=== PATIENT | female | born 1995 | race Caucasian/White ===

== ENCOUNTER 2019-06-03 22:20 | Emergency (ER) | payer OTHER, BC ==
[~2019-06-03] VITALS: Ht 170.2 cm; Wt 88.0 kg
[2019-06-04] MEDS ORDERED: CITRATE OF MAG296 ML PO (00:15)
== END 2019-06-04 01:32 | disposition home or self-care (01) ==
LOC: ER 22:20
DX: K59.00 Constipation, unspecified (principal); L72.0 Epidermal cyst
CPT/HCPCS: 74150; 81025; 99284-25

== ENCOUNTER 2019-06-18 10:17 | Day surgery (SDC) | payer OTHER, BC ==
[~2019-06-18 10:17] MED LIST: CITRATE OF MAG296 ML PO
--- NOTE | 2019-06-18 12:51 | NUR ---
PATIENT DISCHARGED IN STABLE CONDITION, AMBULATORY. COPY OF DISCHARGE INSTRUCTIONS GIVEN WITH STATED UNDERSTANDING.
[2019-06-22 11:36] LABS: Performing Lab SYMBIODX; Test Name SPINDLE CELL
[2019-07-09 10:16] LABS: Result SEE PATHOTH RESULTS
== END 2019-06-19 00:21 | disposition home or self-care (01) ==
LOC: CT 10:17
PROVIDERS: Internal Medicine Gastroenterology
DX: R19.03 Right lower quadrant abdominal swelling, mass and lump (principal); K59.09 Other constipation
CPT/HCPCS: 49180; 77012; 88307

== ENCOUNTER 2019-08-04 08:50 | Day surgery (SDC) | payer OTHER, BC ==
[~2019-08-04] VITALS: Ht 170.2 cm; Wt 91.2 kg
== END 2019-08-04 11:15 | disposition home or self-care (01) ==
LOC: ORSCSDS 08:50
PROVIDERS: Internal Medicine Gastroenterology
PROC: 0DJD8ZZ Inspection of Lower Intestinal Tract, Via Natural or Artificial Opening Endoscopic (ICD-10-PCS; principal; 2019-08-04 10:30)
DX: K62.5 Hemorrhage of anus and rectum (principal); K64.8 Other hemorrhoids; D48.1 Neoplasm of uncertain behavior of connective and other soft tissue
CPT/HCPCS: J2704; J7120

== ENCOUNTER → 2019-09-26 | Outpatient (CLI) | payer OTHER, BC ==
[2019-09-26 16:22] LABS: BASOPHILS ABSOLUTE AUTO 0.03 K/mm3 (0.00-0.23); BASOPHILS PERCENT AUTO 0 % (0-2); EOSINOPHILS ABSOLUTE AUTO 0.02 K/mm3 (0.00-0.68); EOSINOPHILS PERCENT AUTO 0 % (0-6); Hematocrit 43.4 % (33.0-51.0); Hemoglobin 14.5 g/dL (11.5-16.0); IMMATURE GRAN ABSOLUTE AUTO 0.06 K/mm3 (0.00-0.10); IMMATURE GRAN PERCENT AUTO 1 % (0-1); LYMPHOCYTES ABSOLUTE AUTO 1.08 K/mm3 (0.84-5.20); LYMPHOCYTES PERCENT AUTO 9 % (21-46); MONOCYTES ABSOLUTE AUTO 0.75 K/mm3 (0.16-1.47); MONOCYTES PERCENT AUTO 6 % (4-13); Mean Corpuscular HGB 29.6 pg (26.0-34.0); Mean Corpuscular HGB Conc 33.4 g/dL (31.5-36.5); Mean Corpuscular Volume 89 fL (80-100); Mean Platelet Volume 9.6 fL (9.1-12.4); NEUTROPHILS ABSOLUTE AUTO 10.82 K/mm3 (1.96-9.15); NEUTROPHILS PERCENT AUTO 85 % (41-73); Platelet Count 336 K/mm3 (150-400); RDW Coefficient Variation 11.5 % (11.7-14.2); RDW Standard Deviation 37.1 fL (35.1-46.3); White Blood Cell Count 12.76 K/mm3 (4.00-11.30)
[2019-09-26 16:50] LABS: Anion Gap 8 mmol/L (6-16); Blood Urea Nitrogen 13 mg/dL (8-24); Bun/Creatinine Ratio 16.6 (12.0-20.0); CO2, Blood 24 mmol/L (21-32); Calcium, Blood 9.2 mg/dL (8.5-10.1); Chloride, Blood 103 mmol/L (98-108); Creatinine, Blood 0.78 mg/dL (0.40-1.00); Glomerular Filtration Rate >60 (60-); Glucose, Blood 98 mg/dL (70-99); Potassium, Blood 3.5 mmol/L (3.5-5.5); Sodium, Blood 135 mmol/L (136-145)
== END ==
LOC: LAB 15:30 → LAB SHORT 15:30
PROVIDERS: Physician Assistant
DX: L08.9 Local infection of the skin and subcutaneous tissue, unspecified (principal); R10.9 Unspecified abdominal pain
CPT/HCPCS: 80048; 85025; 87070; 87077; 87086; 87186; 87205

== ENCOUNTER → 2019-10-14 | Outpatient (CLI) | payer OTHER, BC ==
[2019-10-14 17:05] LABS: BASOPHILS ABSOLUTE AUTO 0.04 K/mm3 (0.00-0.23); BASOPHILS PERCENT AUTO 0 % (0-2); EOSINOPHILS PERCENT AUTO 0 % (0-6); Hematocrit 41.8 % (33.0-51.0); Hemoglobin 14.1 g/dL (11.5-16.0); IMMATURE GRAN ABSOLUTE AUTO 0.05 K/mm3 (0.00-0.10); IMMATURE GRAN PERCENT AUTO 0 % (0-1); LYMPHOCYTES ABSOLUTE AUTO 1.95 K/mm3 (0.84-5.20); LYMPHOCYTES PERCENT AUTO 15 % (21-46); MONOCYTES ABSOLUTE AUTO 1.54 K/mm3 (0.16-1.47); MONOCYTES PERCENT AUTO 11 % (4-13); Mean Corpuscular HGB Conc 33.7 g/dL (31.5-36.5); Mean Corpuscular Volume 86 fL (80-100); Mean Platelet Volume 10.5 fL (9.1-12.4); NEUTROPHILS ABSOLUTE AUTO 9.91 K/mm3 (1.96-9.15); NEUTROPHILS PERCENT AUTO 73 % (41-73); Platelet Count 223 K/mm3 (150-400); RDW Coefficient Variation 11.9 % (11.7-14.2); RDW Standard Deviation 37.6 fL (35.1-46.3); Red Blood Cell Count 4.86 M/mm3 (3.80-5.20); White Blood Cell Count 13.49 K/mm3 (4.00-11.30)
[2019-10-14 17:21] LABS: Alanine Aminotransfer (ALT/SGP 23 U/L (12-78); Albumin, Blood 3.2 g/dL (3.4-5.0); Albumin/Globulin Ratio 0.7 (0.8-1.8); Alk Phos 105 U/L (50-136); Anion Gap 10 mmol/L (6-16); Aspartate Aminotrans (AST/SGOT 13 U/L (12-37); Bilirubin, Total 0.7 mg/dL (0.1-1.0); Blood Urea Nitrogen 9 mg/dL (8-24); Bun/Creatinine Ratio 10.5 (12.0-20.0); CO2, Blood 25 mmol/L (21-32); Calcium, Blood 9.3 mg/dL (8.5-10.1); Chloride, Blood 97 mmol/L (98-108); Creatinine, Blood 0.85 mg/dL (0.40-1.00); Globulin, Blood 4.5 g/dL (2.2-4.0); Glomerular Filtration Rate >60 (60-); Glucose, Blood 93 mg/dL (70-99); Potassium, Blood 3.1 mmol/L (3.5-5.5); Sodium, Blood 132 mmol/L (136-145); Total Protein, Blood 7.7 g/dL (6.4-8.2)
== END ==
LOC: LAB 16:00 → LAB SHORT 16:00
PROVIDERS: Nurse Practitioner
DX: R10.84 Generalized abdominal pain (principal)
CPT/HCPCS: 80053; 85025

== ENCOUNTER → 2020-12-22 | Outpatient (CLI) | payer OTHER ==
[2020-12-22 20:25] LABS: Candida species (DNA Probe) Positive (NEGATIVE); G. vaginalis (DNA Probe) Positive (NEGATIVE); T. vaginalis (DNA Probe) Negative (NEGATIVE)
[2020-12-25 05:07] LABS: CHLAMYDIA TRACHOMATIS, NAA Negative (Negative)
== END | disposition home or self-care (01) ==
LOC: LAB SHORT 18:13 → LAB 18:13
PROVIDERS: Physician Assistant
DX: R87.629 Unspecified abnormal cytological findings in specimens from vagina (principal)
CPT/HCPCS: 87480; 87491; 87510; 87591; 87660

== ENCOUNTER → 2024-09-21 | Outpatient (CLI) | payer BC | LOC: LAB 16:28 → LAB SHORT 16:28 | DX: O09.90 Supervision of high risk pregnancy, unspecified, unspecified trimester (principal) | CPT/HCPCS: 87081; 87150 ==

== ENCOUNTER 2024-10-05 05:19 | Inpatient (IN) | payer BC ==
[2024-10-05] VITALS (14 sets, daily range): BP systolic 94–141; BP diastolic 49–80
[~2024-10-05] VITALS: Ht 170.2 cm; Wt 104.5 kg
[2024-10-05] MEDS ORDERED: PRENATAL TABLE1 EAC2 (06:14)
[2024-10-05] MEDS ORDERED: CeFAZolin Sodium 2,000 MG in NS 100 ML IV SCH (06:15)
[2024-10-05] MEDS ORDERED: Lactated Ringer's 1,000 ML IV SCH ×3 (06:15→08:45)
[2024-10-05] MEDS ORDERED: SERT100 PO (06:15)
[2024-10-05] MEDS ORDERED: Citric Acid/Sodium Citrate 30 ML BTL PO PRN (06:15)
[2024-10-05] MEDS ORDERED: Metoclopramide HCl 5MG / ML 2ML Vial IV PRN (06:15)
[2024-10-05] MEDS ORDERED: Azithromycin 500 MG in NS 250 ML IV ONE (06:15)
[2024-10-05] MEDS ORDERED: ASPI81CH (06:16)
[2024-10-05] MEDS ORDERED: Lactated Ringer's 1,000 ML IV ONE (06:23)
[2024-10-05] MEDS ORDERED: FentaNYL Citrate 50 MCG/ML 2 ML Injection ONE ×2 (06:24→07:28)
[2024-10-05] MEDS ORDERED: Ondansetron HCl 2 MG / ML 2ML Vial ONE ×2 (06:26→07:55)
[2024-10-05] MEDS ORDERED: FentaNYL Citrate 50 MCG/ML 2 ML Injection IV PRN (06:30)
[2024-10-05 06:33] LABS: BASOPHILS ABSOLUTE AUTO 0.07 K/mm3 (0.00-0.23); BASOPHILS PERCENT AUTO 0 % (0-2); EOSINOPHILS ABSOLUTE AUTO 0.06 K/mm3 (0.00-0.68); EOSINOPHILS PERCENT AUTO 0 % (0-6); Hematocrit 42.1 % (33.0-51.0); Hemoglobin 14.7 g/dL (11.5-16.0); IMMATURE GRAN ABSOLUTE AUTO 0.18 K/mm3 (0.00-0.10); IMMATURE GRAN PERCENT AUTO 1 % (0-1); LYMPHOCYTES ABSOLUTE AUTO 2.39 K/mm3 (0.84-5.20); LYMPHOCYTES PERCENT AUTO 15 % (21-46); MONOCYTES ABSOLUTE AUTO 0.79 K/mm3 (0.16-1.47); MONOCYTES PERCENT AUTO 5 % (4-13); Mean Corpuscular HGB 29.5 pg (26.0-34.0); Mean Corpuscular HGB Conc 34.9 g/dL (31.5-36.5); Mean Corpuscular Volume 85 fL (80-100); Mean Platelet Volume 10.5 fL (9.1-12.4); NEUTROPHILS ABSOLUTE AUTO 12.22 K/mm3 (1.96-9.15); NEUTROPHILS PERCENT AUTO 78 % (41-73); NRBC ABSOLUTE 0.02 K/mm3 (0.00-0.02); NRBC Auto 0.1 /100 WBC (0.0-0.2); Platelet Count 247 K/mm3 (150-400); RDW Coefficient Variation 13.8 % (11.7-14.2); RDW Standard Deviation 42.4 fL (35.1-46.3); Red Blood Cell Count 4.98 M/mm3 (3.80-5.20); White Blood Cell Count 15.71 K/mm3 (4.00-11.30)
[2024-10-05] MEDS ORDERED: Oxytocin 10 Unit / ML Vial ONE (07:54)
[2024-10-05] MEDS ORDERED: Phenylephrine HCl 100 MCG/ML-NS 10MLSYR (1MG/10ML) ONE (07:55)
[2024-10-05] MEDS ORDERED: Dexamethasone Sod Phos 10 MG/ML 1ML VIAL ONE (07:55)
[2024-10-05 08:15] LABS: PCO2 Cord - Venous 61.7 mmHg (40-50); PO2 Cord - Venous < 14.0 mmHg (28-32)
[2024-10-05] MEDS ORDERED: ePHEDrine Sulfate 50 MG/ML 1ML Injection ONE (08:25)
--- NOTE | 2024-10-05 08:26 | NUR ---
10/05/24 0826 Deepali Ohara VIABLE FEMALE BORN AT [address]. SEE LABOR AND DELIVERY FOR APGARS AND WEIGHTS. BABY TO NURSERY. CORD GASES GIVEN TO CARMEN SPARKS AND CORD BLOOD GIVEN TO CAROLYN KRAUS.
[2024-10-05] MEDS ORDERED: Ketorolac Tromethamine 30mg Vial ONE (08:27)
[2024-10-05] MEDS ORDERED: Lanolin Cream TOP PRN (08:40)
[2024-10-05] MEDS ORDERED: OxyCODONE HCL 5 MG TAB PO PRN ×2 (08:40→08:50)
[2024-10-05] MEDS ORDERED: Misoprostol 200 MCG Tab PR PRN (08:40)
[2024-10-05] MEDS ORDERED: Ondansetron HCl 2 MG / ML 2ML Vial IV PRN (08:40)
[2024-10-05] MEDS ORDERED: Magnesium Hydroxide Conc 10 ML UDC PO PRN (08:40)
[2024-10-05] MEDS ORDERED: Metoclopramide HCl 10 MG Tab PO PRN (08:45)
[2024-10-05] MEDS ORDERED: Carboprost Tromethamine 250 MCG/ML 1ML Amp IM PRN (08:45)
[2024-10-05] MEDS ORDERED: Simethicone 80 MG Chew PO PRN (08:45)
[2024-10-05] MEDS ORDERED: Methylergonovine Maleate 0.2 MG Tab PO PRN (08:45)
[2024-10-05] MEDS ORDERED: DiphenhydrAMINE HCL 25 MG Cap PO PRN (08:50)
[2024-10-05] MEDS ORDERED: OXYTOCIN/RINGER'S LACTATE 500 ML IV SCH (08:50)
[2024-10-05] MEDS ORDERED: Promethazine HCl 25 MG Tab PO PRN (08:50)
[2024-10-05] MEDS ORDERED: Acetaminophen 500 MG Tab PO PRN (08:50)
[2024-10-05] MEDS ORDERED: Docusate Sodium 100 MG Cap PO SCH (09:00)
[2024-10-05] MEDS ORDERED: Ketorolac Tromethamine 30mg Vial IV SCH (09:00)
[2024-10-05] MEDS ORDERED: Prenatal Vit/FE Fumarate/FA 1 Tab PO SCH (09:00)
--- NOTE | 2024-10-05 15:22 | NUR ---
ASSUMPTION OF CARE THIS RN ASSUMED CARE OF PT AT THIS TIME, REPORT FROM MEREDITH TAVARES, EFRA.
[2024-10-05] MEDS ORDERED: Ibuprofen 400 MG Tab PO SCH (16:00)
[2024-10-05] MEDS ORDERED: Ketorolac Tromethamine 30mg Vial IV PRN (21:00)
[2024-10-06 00:36] VITALS: BP 133/63
--- NOTE | 2024-10-06 04:49 | NUR ---
pt is snoring upon opening the door.
[2024-10-06 06:25] LABS: BASOPHILS ABSOLUTE AUTO 0.03 K/mm3 (0.00-0.23); BASOPHILS PERCENT AUTO 0 % (0-2); EOSINOPHILS ABSOLUTE AUTO 0.04 K/mm3 (0.00-0.68); EOSINOPHILS PERCENT AUTO 0 % (0-6); Hematocrit 32.9 % (33.0-51.0); Hemoglobin 11.3 g/dL (11.5-16.0); IMMATURE GRAN ABSOLUTE AUTO 0.14 K/mm3 (0.00-0.10); IMMATURE GRAN PERCENT AUTO 1 % (0-1); LYMPHOCYTES ABSOLUTE AUTO 2.71 K/mm3 (0.84-5.20); LYMPHOCYTES PERCENT AUTO 23 % (21-46); MONOCYTES ABSOLUTE AUTO 0.82 K/mm3 (0.16-1.47); MONOCYTES PERCENT AUTO 7 % (4-13); Mean Corpuscular HGB 29.7 pg (26.0-34.0); Mean Corpuscular HGB Conc 34.3 g/dL (31.5-36.5); Mean Corpuscular Volume 87 fL (80-100); Mean Platelet Volume 10.2 fL (9.1-12.4); NEUTROPHILS ABSOLUTE AUTO 8.29 K/mm3 (1.96-9.15); NEUTROPHILS PERCENT AUTO 69 % (41-73); Platelet Count 207 K/mm3 (150-400); RDW Coefficient Variation 14.2 % (11.7-14.2); RDW Standard Deviation 43.9 fL (35.1-46.3); White Blood Cell Count 12.03 K/mm3 (4.00-11.30)
[2024-10-06 07:14] VITALS: BP 121/56
--- NOTE | 2024-10-06 10:53 | NUR ---
shower done dressing off, incision clear WNL
[2024-10-06 12:30] VITALS: BP 122/69
[2024-10-06 16:22] VITALS: BP 137/87
[2024-10-06 19:23] VITALS: BP 119/56
[2024-10-07 00:04] VITALS: BP 122/64
[2024-10-07 04:42] VITALS: BP 127/67
[2024-10-07 07:40] VITALS: BP 126/60
[2024-10-07 10:30] VITALS: BP 118/70
== END 2024-10-07 11:10 | disposition home or self-care (01) | DRG 788 ==
LOC: OBS 05:19 → BC 05:21 → OBS 06:03 → BC 06:06
PROVIDERS: Family Medicine; Obstetrics & Gynecology; ADMIT Obstetrics & Gynecology
PROC: 10D00Z1 Extraction of Products of Conception, Low, Open Approach (ICD-10-PCS; principal; 2024-10-05 07:00)
DX: O42.02 Full-term premature rupture of membranes, onset of labor within 24 hours of rupture (principal); Z37.0 Single live birth; Z3A.38 38 weeks gestation of pregnancy; O32.1XX0 Maternal care for breech presentation, not applicable or unspecified; O99.344 Other mental disorders complicating childbirth; F41.8 Other specified anxiety disorders; O69.81X0 Labor and delivery complicated by cord around neck, without compression, not applicable or unspecified; Z90.49 Acquired absence of other specified parts of digestive tract; Z79.82 Long term (current) use of aspirin; Z79.899 Other long term (current) drug therapy; Z86.03 Personal history of neoplasm of uncertain behavior
CPT/HCPCS: 36415; 59025; 81003; 82803; 85025; 86850; 86900; 86901; 86923; 99214; A9270; J0456; J1100; J1885; J2371; J2405; J2590; J3010; J7050; J7120